=== PATIENT | female | born 1985 | race Caucasian/White ===

== ENCOUNTER 2017-09-26 15:53 | Emergency (ER) | payer OTHER ==
[2017-09-26] MEDS: IBUPROFEN 600 MG TAB PO (17:07)
[2017-09-26] MEDS ORDERED: IBUPROFEN 200 MG TAB (17:10)
== END 2017-09-26 17:42 | disposition home or self-care (01) ==
LOC: FTE 15:53
DX: M54.2 Cervicalgia (principal); M79.602 Pain in left arm; J45.909 Unspecified asthma, uncomplicated
CPT/HCPCS: 72040; 99283-25

== ENCOUNTER 2018-07-05 08:51 | Emergency (ER) | payer MEDICAID, OTHER ==
[2018-07-05] MEDS: IBUPROFEN 800 MG TAB PO (09:35)
== END 2018-07-05 10:32 | disposition home or self-care (01) ==
LOC: E/R 08:51
DX: S89.91XA Unspecified injury of right lower leg, initial encounter (principal); J45.909 Unspecified asthma, uncomplicated; W18.39XA Other fall on same level, initial encounter; Y92.9 Unspecified place or not applicable
CPT/HCPCS: 29505; 73562; 99283-25

== ENCOUNTER 2018-10-18 06:53 | Emergency (ER) | payer SELFPAY, MEDICAID | END 2018-10-18 07:47 | disposition home or self-care (01) | LOC: FTE 07:47 | DX: H01.004 Unspecified blepharitis left upper eyelid (principal); J45.909 Unspecified asthma, uncomplicated | CPT/HCPCS: 99283 ==